=== PATIENT | male | born 1985 | race Native Hawaiian/Other Pacific Islander ===

== ENCOUNTER 2017-01-20 06:30 | Inpatient (IN) | payer OTHER ==
[2017-01-15 14:44] VITALS: BMI 28.3
[2017-01-20] MEDS ORDERED: MethylPREDNISolone Depo 40 mg/ml Inj ONE ×2 (07:26→10:09)
[2017-01-20] MEDS ORDERED: Bupivacaine 0.5% Inj(30mL) ONE ×2 (07:27→10:10)
[2017-01-20] MEDS ORDERED: Lidocaine 1% Inj (20ml) ONE ×2 (07:27→10:10)
[2017-01-20] MEDS ORDERED: Midazolam 2 MG/2 ML VIAL ONE (07:41)
[2017-01-20] MEDS ORDERED: Propofol 10 mg/ml Inj (20 ML) ONE (07:41)
[2017-01-20] MEDS ORDERED: Lidocaine 4% (Laryng-O-Jet) Kit MM ONE (09:12)
[2017-01-20] MEDS ORDERED: Rocuronium 10 mg/ml (5 ml) ONE (09:13)
[2017-01-20] MEDS ORDERED: Lidocaine 2% w Epi 1:100,000 Inj IJ ONE (10:10)
[2017-01-20] MEDS ORDERED: Lactated Ringer's 1,000 ML IV ONE ×2 (10:18→13:30)
[2017-01-20] MEDS ORDERED: Ropivacaine 0.5% 30ML IV ONE ×2 (13:35→13:39)
[2017-01-20] MEDS ORDERED: Lidocaine 1% Inj (20ml) IJ ONE (13:37)
[2017-01-20] MEDS ORDERED: Bupivacaine 0.5% 50 ML IJ ONE (13:38)
[2017-01-20] MEDS ORDERED: Desflurane Inhalation Anesthetic Liq (240 ml) ONE (14:15)
[2017-01-20] MEDS ORDERED: Neostigmine Methylsulfate 3mg/3ml Syringe IV ONE (14:17)
[2017-01-20] MEDS ORDERED: Oxycodone/Acetaminophen 5/325 mg Tab PO PRN (14:23)
[2017-01-20] MEDS ORDERED: Morphine 4 MG/ML VIAL IVP PRN (14:24)
[2017-01-20] MEDS ORDERED: Dexamethasone 4 mg/1 ml IVP PRN (14:26)
[2017-01-20] MEDS ORDERED: Lactated Ringer's 1,000 ML IV SCH (14:26)
[2017-01-20] MEDS ORDERED: HYDROmorphone 0.5 mg/0.5 ml ISec IVP PRN (14:26)
--- NOTE | 2017-01-20 14:32 | PCM.ANESB1 ---
Interscalene Block - Brachial Plexus Date of Procedure: 01/20/17 Anesthesiologist: francisco Procedure Performed: Interscalene Block of Brachial Plexus Left - Procedure Interscalene Block of Brachial Plexus: This procedure was explained to the patient that it is for post-operative pain management. Consent was obtained after a thorough discussion with the patient regarding the benefits and possible complications of local anesthetic block of the Brachial Plexus at the Interscalene area. The patient was brought to the Operating Room and standard monitors were applied. Time out was held with the circulating nurse to confirm the correct surgery and appropriate block. After applying Oxygen by nasal cannula and administering IV Sedation, the patient's head was gently rotated away from the _let operative shoulder and the anterior scalene groove was carefully palpated. The ultrasound transducer was then applied to the skin in the transverse plane and the brachial plexus was visualized lateral to the carotid artery and in between the anterior and middle scalene muscles. After identification,the anterior lateral portion of the neck was prepped with Betadine solution three times and Lidocaine 1% was injected subcutaneously for topical analgesia. At this point, a # 22 gauge Stimuplex 2 inches insulated needle was inserted into the interscalene groove and directed in a caudal and midline direction. The needle was inserted lateral to the ultrasound transducer in-plane towards the brachial plexus in a [id number] direction. Needle advancement was performed carefully under direct ultrasound visualization. Nerve stimulator was used and twitched of the affected extremity including the hand brachialis muscles, biceps and the deltoid was obtained at a current of _0.3____MA. After repeated negative aspiration,__5___cc of__0.5%___,_Ropivacaine were injected and this was followed with __25___cc of __0.5___% __Ropivacaine___ . Under ultrasound guidance the local anesthetics were observed surrounding the roots of the brachial plexus. The needle was removed intact and sterile dressing was applied. The patient had stable vital signs, was conscious and in no apparent distress. The patient tolerated the interscalene block of the bracheal plexus well with stable vital signs and was prepared for subsequent surgery.
[2017-01-20] MEDS: ceFAZolin 1 GM in Sodium Chloride 0.9% 100 ML IVPB SCH (17:30)
[2017-01-21] MEDS: ceFAZolin 1 GM in Sodium Chloride 0.9% 100 ML IVPB SCH ×2 (02:00→09:07)
[2017-01-21 06:04] VITALS: O2SAT 98
--- NOTE | 2017-01-21 06:37 | OP ---
PROCEDURE DATE: 01/20/2017 SURGEON: Harry Castrejon MD PRUNER: resident Kurt. PREOPERATIVE DIAGNOSES: 1. Left elbow olecranon nonunion. 2. Left elbow contracture and stiffness. 3. Left elbow irritation of hardware. POSTOPERATIVE DIAGNOSES: 1. Left elbow olecranon nonunion. 2. Left elbow partial triceps tear. 3. Left elbow contracture. 4. Left elbow hardware irritation. PROCEDURES: 1. Left elbow contracture release with removal of capsule, heterotopic ossification, 58438. 2. Left elbow olecranon nonunion, open reduction internal fixation, 68765. 3. Left elbow triceps repair, 38109. 4. Left elbow removal tension band hardware implant, 58686. 5. Left elbow manipulation under anesthesia, 63590. ANESTHESIA: General. BLOOD LOSS: 50 mL. SPECIMENS: None. COMPLICATIONS: None. DISPOSITION: Stable to recovery room. INDICATIONS: This is a 31-year-old right-hand dominant male who sustained left elbow supracondylar fracture about 3 months ago. The patient underwent ORIF of the fracture and developed residual stiffness and contraction of the elbow. He had difficulty with flexion of the elbow past 80 degrees. The patient has failed conservative therapy which including extensive physical therapy and noncompliance with medications and has plateaued with progress of his elbow range of motion. After explanation of the risks of the procedures, which include but not limited to bleeding, infection, tendon, nerve, vessel injury, contracture stiffness, continued pain with need for additional surgery in the future, posttraumatic arthritis. The patient understood above the risks and elected to proceed with the above surgery. DESCRIPTION OF PROCEDURE: The patient was brought to the operating room and placed supine on the operating room table. After administration of general anesthesia and prophylactic antibiotics, the patient was placed in left lateral decubitus position with perrin bags. All bony prominences well padded. The left upper extremity was then prepped and draped in a standard surgical fashion. A timeout was performed. Next, initial fluoroscopic images were taken. The patient was paralyzed and manipulation under anesthesia was undertaken. The patient had no improvement of his flexion. Thus at this time, it was decided to do an open contracture release. The fluoroscopic x-rays also confirmed fracture gap at olecranon nonunion site with flexion of the elbow. An old posterior incision was utilized. Incision was made through the skin only. Full thickness flaps were raised. Of note, tourniquet was inflated prior to incision. After exposure of the triceps, there was extensive scarring at the superficial level. Blunt dissection was carried down over the triceps muscle with the use of [place] and [place] elevator. Next, the tension band hardware was exposed. The wires were loose and were removed. The circulation wire was also cut and removed. The nonunion olecranon site was then exposed. There was fibrous nonunion which was cleaned out at both fracture ends to good healthy bleeding bone. Drill holes were used in both fracture ends to promote blood flow and healing. After exposure of the olecranon fracture piece, work was begun on releasing the capsule. Prior to this, of note, there was partial triceps tear on the lateral side of the olecranon. The partial tear of the triceps was elevated off the bone to promote early healing. Work was then begun on exposing and removing the posterior capsule of the elbow joint. The joint was entered and scar tissue was released deep to the triceps muscle exposing the capsule. The entire posterior capsule was then exposed and removed. The joint was then inspected and was well aligned with no arthritic changes. The supracondylar fracture site was also exposed and shown to be healed. The supracondylar plates were well fixed and stable. We felt the construct was stable and did not need to be taken out. In order to avoid the risk of re-fracturing onto the supracondylar bone, the 2 plates were left intact. At this time, the elbow was flexed; with passive force, elbow range of motion improved from 80 degrees preoperatively to 140 degrees. The hand was able to be brought to the patient's face. The ulnar nerve was identified via posterior and medial elbow and protected throughout the procedure. The facial, the medial and ulnar side of the subcutaneous ulnar was exposed. Longitudinal incision was made at the distal aspect of the olecranon. The fragments of nonunion was debrided sharply, a reduction maneuver was then performed consisting of elbow extension and distal pressure on the olecranon. An anatomic reduction was seen and the proximal edges of the fracture aligned to the distal edges. The reduction was held provisionally with the reduction clamp. Next, a Synthe[employer] olecranon plate was selected and placed on the posterior ulnar cortex. Fluoroscopy again confirmed well alignment of the fracture and good placement of the hardware. Initially, locking screws were used to fix the proximal fracture site of the ulnar to the plate. After this, a compression technique was used to compress the distal fragment to the proximal piece. An oblong hole was selected for compression technique and a cortical screw was then placed and appropriately sized. Next, rest of the distal holes were filled with locking screws which held the reduction in anatomic position. Reduction clamp was removed. Fluoroscopy was taken again. The elbow was taken through full range of motion with extension to flexion without any gapping at the fracture site. The partial tear of the triceps was then repaired to the olecranon plate. A #2 fiber wire was used in a locking suture technique to grasp the radial side of the tendon and was sutured through the hole in the plate. The suture lines were tied to the plate. Then a similar technique, another fiber wire stitch was used for ulnar sided repair of the triceps tendon to the plate. The suture was passed through the hole and plate and tied to itself. The elbow was taken again through full range of motion without any instability or gapping of the fracture site or triceps. The tourniquet was deflated. Hemostasis was obtained. The Hemovac drain was placed into the elbow to prevent postoperative hematoma. The wound was then copiously irrigated with bacitracin solution. The wound was closed with 0 Vicryl followed by 2-0 Vicryl followed by kev. Sterile dressing was applied. Final fluoroscopy again confirmed full alignment of the elbow joint, no fracture gapping, no abnormal screw penetrating the joint. The patient tolerated the procedure well, was extubated and returned to recovery room where he will undergo an upper extremity block. The patient will be admitted for 24 hours and start the immediate passive range of motion of his elbow. Harry Castrejon MD MARY JANE
[2017-01-21 08:02] VITALS: BP 132/84; PULSE 101; RESP 20; TEMP 98.8
--- NOTE | 2017-01-21 08:08 | RAD ---
PROCEDURE: Left elbow HISTORY: p/op contracture release,olecranon fixation COMPARISON: 09/05/2016 TECHNIQUE: Standard protocol for this study/examination. FINDINGS: Postoperative findings related to recent surgical intervention. Orthopedic hardware affixed to the olecranon in satisfactory position. No evidence of orthopedic hardware failure. IMPRESSION: Satisfactory postoperative status.
[2017-01-21] MEDS ORDERED: Enoxaparin 40 mg Syringe SC SCH (09:00)
--- NOTE | 2017-01-21 11:18 | CP.PCM.PN ---
Subjective - Date & Time of Evaluation Date of Evaluation: 01/21/17 Time of Evaluation: 08:00 - Subjective Subjective: c/o incisional pain controlled with PO pain meds,mild tingling in finger's from localized swelling,OOB and started active/passive ROM with PT this am,alysia PO, voiding,+ flatus. Objective - Vital Signs/Intake and Output Vital Signs (last 24 hours): Temp Pulse Resp BP Pulse Ox 98.8 F 101 H 20 132/84 98 01/21/17 08:01 01/21/17 08:01 01/21/17 08:01 01/21/17 08:01 01/21/17 08:01 Intake and Output: 01/21/17 01/21/17 06:59 18:59 Output Total 90 Balance -90 - Medications Medications: Current Medications Enoxaparin Sodium (Lovenox) 40 mg SC DAILY BRIGITTE PRN Reason: Protocol Last Admin: 01/21/17 09:07 Dose: 40 mg Lactated Ringer's (Lactated Ringer's) 1,000 mls @ 100 mls/hr IV .Q10H BRIGITTE Cefazolin Sodium 1 gm/ Sodium (Chloride) 100 mls @ 100 mls/hr IVPB Q8 BRIGITTE Stop: 01/21/17 17:00 Last Admin: 01/21/17 09:07 Dose: 100 mls/hr Morphine Sulfate (Morphine) 2 mg IVP Q4 PRN PRN Reason: Pain, severe (8-10) Ondansetron HCl (Zofran Inj) 4 mg IVP Q6 PRN PRN Reason: Nausea/Vomiting Oxycodone/Acetaminophen (Percocet 5/325 Mg Tab) 2 tab PO Q4 PRN PRN Reason: Pain, moderate (4-7) Stop: 01/23/17 14:24 - Constitutional Appears: Well, Non-toxic, No Acute Distress - Head Exam Head Exam: ATRAUMATIC, NORMAL INSPECTION, NORMOCEPHALIC - Eye Exam Eye Exam: EOMI, Normal appearance, PERRL Pupil Exam: NORMAL ACCOMODATION - ENT Exam ENT Exam: Mucous Membranes Moist - Neck Exam Neck Exam: Normal Inspection - Respiratory Exam Respiratory Exam: Clear to Ausculation Bilateral - Cardiovascular Exam Cardiovascular Exam: REGULAR RHYTHM, +S1, +S2 - GI/Abdominal Exam GI & Abdominal Exam: Soft, Normal Bowel Sounds - Extremities Exam Additional comments: LUE wound C/D/I,mild localized edema,compartments soft,mild decreased sensation to digits and decreased repairer pump 2nd edema,immobilizer patent,flexion 0-50 degree's, extension 0-60 degree's,internal rotation 90 degree's,external rotation 0-60 degree's,+ 2 cap refill,drain removed/old bloody drainage - Neurological Exam Neurological Exam: Alert, Awake, Oriented x3 - Psychiatric Exam Psychiatric exam: Normal Affect, Normal Mood - Skin Skin Exam: Dry, Intact Assessment and Plan - Assessment and Plan (Free Text) Assessment: 31 yo right hand dominant male POD#1 Left Elbow Contracture Release,Olecranon ORIF Secondary to Non Union,Tricep Repair,Manipulation Under Anesthesia,post op edema and pain/NVI/Hemodynamically stable Plan: drain d/c,home today with f/u Dr. Castrejon in 1 week,post op wound instructions and PT d/w pt,expressed understanding,all d/w Dr. Castrejon,agree with plan.
[2017-01-21 11:53] LABS: BASO % 0.7 % (0.0-2.0); EOS % 0.1 % (0.0-4.0); HEMOGLOBIN 12.1 g/dL (12.0-18.0); LYMPH # 1.5 K/uL (1.0-4.3); LYMPH % 20.1 % (20.0-40.0); MEAN CORPUSCULAR HEMOGLOBIN 27.1 pg (27.0-31.0); MEAN CORPUSCULAR HGB CONC 32.7 g/dL (33.0-37.0); MEAN PLATELET VOLUME 8.5 fl (7.2-11.7); MONO # 0.7 K/uL (0.0-0.8); MONO % 9.6 % (0.0-10.0); NEUT # 5.1 K/uL (1.8-7.0); NEUT % 69.5 % (50.0-75.0); RBC 4.45 Mil/uL (4.40-5.90); RED CELL DISTRIBUTION WIDTH 17.4 % (11.5-14.5); WHITE BLOOD COUNT 7.3 K/uL (4.8-10.8)
[2017-01-21 12:06] LABS: BLOOD UREA NITROGEN 9 mg/dl (9-20); CALCIUM 8.8 mg/dL (8.4-10.2); GFR AFRICAN-AMERICAN > 60; GFR NON-AFRICAN AMERICAN > 60
--- NOTE | 2017-01-21 13:36 | CP.PCM.DIS ---
Provider - Provider Date of Admission: 01/20/17 13:59 Attending physician: Harry Martinez MD Primary care physician: NO FAMILY PROVIDER Time Spent in preparation of Discharge (in minutes): 30 Diagnosis - Discharge Diagnosis (1) Olecranon fracture Status: Chronic (2) Contracture, left elbow Status: Chronic Hospital Course - Lab Results Lab Results: Most Recent Lab Values WBC 7.3 K/uL (4.8-10.8) 01/21/17 10:55 RBC 4.45 Mil/uL (4.40-5.90) 01/21/17 10:55 Hgb 12.1 g/dL (12.0-18.0) D 01/21/17 10:55 Hct 37.0 % (35.0-51.0) 01/21/17 10:55 MCV 83.0 fl (80.0-94.0) D 01/21/17 10:55 MCH 27.1 pg (27.0-31.0) 01/21/17 10:55 MCHC 32.7 g/dL (33.0-37.0) L 01/21/17 10:55 RDW 17.4 % (11.5-14.5) H 01/21/17 10:55 Plt Count 229 K/uL (130-400) 01/21/17 10:55 MPV 8.5 fl (7.2-11.7) 01/21/17 10:55 Neut % (Auto) 69.5 % (50.0-75.0) 01/21/17 10:55 Lymph % (Auto) 20.1 % (20.0-40.0) 01/21/17 10:55 [place] % (Auto) 9.6 % (0.0-10.0) 01/21/17 10:55 Eos % (Auto) 0.1 % (0.0-4.0) 01/21/17 10:55 Baso % (Auto) 0.7 % (0.0-2.0) 01/21/17 10:55 Neut # 5.1 K/uL (1.8-7.0) 01/21/17 10:55 Lymph # 1.5 K/uL (1.0-4.3) 01/21/17 10:55 [place] # 0.7 K/uL (0.0-0.8) 01/21/17 10:55 Eos # 0.0 K/uL (0.0-0.7) 01/21/17 10:55 Baso # 0.0 K/uL (0.0-0.2) 01/21/17 10:55 Sodium 136 mmol/l (132-148) 01/21/17 10:55 Potassium 3.4 MMOL/L (3.6-5.0) L 01/21/17 10:55 Chloride 104 mmol/L (98-107) 01/21/17 10:55 Carbon Dioxide 22 mmol/L (22-30) 01/21/17 10:55 Anion Gap 13 (10-20) 01/21/17 10:55 BUN 9 mg/dl (9-20) 01/21/17 10:55 Creatinine 0.7 mg/dL (0.8-1.5) L 01/21/17 10:55 Est GFR ( Amer) > 60 01/21/17 10:55 Est GFR (Non-Af Amer) > 60 01/21/17 10:55 Random Glucose 136 mg/dL (75-110) H 01/21/17 10:55 Calcium 8.8 mg/dL (8.4-10.2) 01/21/17 10:55 Discharge Exam - Head Exam Head Exam: ATRAUMATIC, NORMAL INSPECTION, NORMOCEPHALIC Discharge Plan - Follow Up Plan Condition: GOOD Disposition: HOME/ ROUTINE Patient education suggested?: Yes Instructions: Ibuprofen (By mouth), Peripheral Nerve Block (DC) Additional Instructions: Pt had a prior Left Distal Humerus/Supracondylar Fx s/p ORIF in 08/22,pt developed a flexion/extension contracture,pt now Post OP Left Elbow Contracture Release,ORIF of Olecranon Non Union,Tricep Repair and Infraclavicular Block by anesthesia May use ibuprofen 400mg three times a day as needed for pain/swelling May shower in 5 days-sponge bath for now keep immobilizer on daily, remove to shower dr martinez appointment thursday01/30/17 ice surgical site 4x day 15 min intervals keep wound clean and dry NWB LUE,resume active/passive ROM with PT starting today Pain med and PT/OT script given to pt Referrals: FAMILY PROVIDER,NO [Primary Care Provider] - Harry Martinez MD [Medical Doctor] -
== END 2017-01-21 13:52 | disposition home or self-care (01) | DRG 502 ==
LOC: H.OPSURG 06:30 → H.MEDSURG1 13:59
PROVIDERS: ADMIT Orthopaedic Surgery; ATTEND Orthopaedic Surgery
PROC: 3E0T3CZ (ICD-10-PCS; 2017-01-20)
PROC: 0KQ80ZZ Repair Left Upper Arm Muscle, Open Approach (ICD-10-PCS; principal; 2017-01-20 07:45)
PROC: 0PSL04Z Reposition Left Ulna with Internal Fixation Device, Open Approach (ICD-10-PCS; 2017-01-20 07:45)
PROC: 0RBM0ZZ Excision of Left Elbow Joint, Open Approach (ICD-10-PCS; 2017-01-20 07:45)
DX: S52.022K Displaced fracture of olecranon process without intraarticular extension of left ulna, subsequent encounter for closed fracture with nonunion (principal); M24.522 Contracture, left elbow